=== PATIENT | male | born 1940 | race Asian ===

== ENCOUNTER 2023-07-23 05:47 | Day surgery (SDC) | payer OTHER ==
[~2023-07-23] VITALS: Ht 165.1 cm; Wt 59.1 kg
[2023-07-23] MEDS ORDERED: LIDOCAINE 4% 50 ML SOLUTION TP ONE (05:48)
[2023-07-23] MEDS ORDERED: LIDOCAINE 2% 11 ML JELLY TP ONE (05:48)
[2023-07-23] MEDS ORDERED: BENZOCAINE 20% 50 MCG/SPRAY 57 GM TP ONE (05:48)
[2023-07-23] MEDS ORDERED: SODIUM CHLORIDE 0.9% 1,000 ML IV ONE (07:00)
[2023-07-23] MEDS ORDERED: SODIUM CHLORIDE 0.9% 1,000 ML ONE (07:42)
[2023-07-23] MEDS ORDERED: MIDAZOLAM HCL 2 MG/2 ML VIAL ONE (08:26)
[2023-07-23] MEDS ORDERED: FentaNYL CITRATE PF 100 MCG/2 ML VIAL ONE (08:27)
[2023-07-23 09:03] VITALS: PULSE 64; RESP 14; O2SAT 100
[2023-07-23] MEDS ORDERED: MethylPREDNISolone SOD SUCC 125 MG/2 ML VIAL ONE (09:13)
[2023-07-23] MEDS ORDERED: MethylPREDNISolone SOD SUCC 125 MG/2 ML VIAL IVP ONE (09:30)
== END 2023-07-23 11:25 | disposition home or self-care (01) ==
LOC: SURGERY 05:47
PROVIDERS: ATTEND Internal Medicine Critical Care Medicine
DX: J38.4 Edema of larynx (principal); B37.0 Candidal stomatitis; Z87.891 Personal history of nicotine dependence; Z85.46 Personal history of malignant neoplasm of prostate
CPT/HCPCS: 31623; 87206; 87101; 87220; 87070; 88108; 88305; 31624; 71045; 87015; J3010; J2250; J2930; Q9967; J7030; Z7610